=== PATIENT | male | born 1960 | race Caucasian/White ===

== ENCOUNTER → 2017-08-03 | Outpatient (CLI) | payer BC | END | disposition home or self-care (01) | LOC: KCIC MRI 11:38 | DX: D48.0 Neoplasm of uncertain behavior of bone and articular cartilage (principal); M18.12 Unilateral primary osteoarthritis of first carpometacarpal joint, left hand; M25.832 Other specified joint disorders, left wrist | CPT/HCPCS: 73221 ==